=== PATIENT | female | born 1965 | race Caucasian/White ===

== ENCOUNTER → 2019-09-25 | Outpatient (CLI) | payer BC ==
[~2019-09-25] MED LIST: BIOTIN FORTE EXT5 MG; ESTRADIOL1 MG PO; FISH OIL; LINZESS145 MC1 PO; LIPITOR PO; LISINOPRIL10 M1 PO; NORTRIPTYLINE10 MG PO; PRAVACHOL40 MG PO; PROGESTERONE100 M2 PO; RESTORIL30 MG PO; VITAMIN D50000 I3 PO
== END | disposition home or self-care (01) ==
LOC: MAMMO 05:07
DX: Z12.31 Encounter for screening mammogram for malignant neoplasm of breast (principal); Z01.419 Encounter for gynecological examination (general) (routine) without abnormal findings

== ENCOUNTER → 2020-10-21 | Outpatient (CLI) | payer BC | END | disposition home or self-care (01) | LOC: MAMMO 00:11 | PROVIDERS: ATTEND Nurse Practitioner Family | DX: Z12.31 Encounter for screening mammogram for malignant neoplasm of breast (principal) ==

== ENCOUNTER → 2021-02-19 | Outpatient (CLI) | payer BC | END | disposition home or self-care (01) | LOC: COVID19 16:28 | PROVIDERS: ATTEND Internal Medicine | DX: U07.1 COVID-19 (principal) ==

== ENCOUNTER → 2021-11-10 | Outpatient (CLI) | payer BC | END | disposition home or self-care (01) | LOC: MAMMO 00:55 | PROVIDERS: ATTEND Nurse Practitioner Family | DX: Z12.31 Encounter for screening mammogram for malignant neoplasm of breast (principal) ==

== ENCOUNTER → 2023-01-25 | Outpatient (CLI) | payer OTHER | END | disposition home or self-care (01) | LOC: MAMMO 03:50 | PROVIDERS: ATTEND Nurse Practitioner Family | DX: Z12.31 Encounter for screening mammogram for malignant neoplasm of breast (principal) ==